=== PATIENT | male | born 1975 | race Hispanic/Latino ===

== ENCOUNTER 2019-08-31 13:04 | Emergency (ER) | payer BC ==
--- NOTE | 2019-08-31 13:27 | RAD REPORT ---
EXAM DESCRIPTION: CT - Ct Stroke Brain Wo Cont - 08/31/2019 1:20 pm CLINICAL HISTORY: NUMBNESS Headache, drowsiness, CVA symptomology COMPARISON: No comparisons TECHNIQUE: All CT scans are performed using dose optimization technique as appropriate and may inclu de automated exposure control or mA/KV adjustment according to patient size. FINDINGS: No intracranial hemorrhage, hydrocephalus or extra-axial fluid collection.No areas of brai n edema or evidence of midline shift. The paranasal sinuses and mastoids are clear. The calvarium is intact. IMPRESSION: No acute intracranial abnormality. The findings were discussed with Dr. Toscano On 08/31/2019 at 1:22 pm by telephone.
[2019-08-31 13:42] LABS: Absolute Lymphocytes (CBC) 2.7 K/uL (0.7-4.9); Basophils % 0.6 % (0-1.3); Hematocrit 47.3 % (39.6-49.0); MPV 8.6 fL (7.6-11.3); RBC Red Blood Cell Count 5.49 M/uL (4.33-5.43)
[2019-08-31 13:49] LABS: Protime INR 0.9
--- NOTE | 2019-08-31 13:54 | RAD REPORT ---
EXAM DESCRIPTION: RAD - Chest Single View - 08/31/2019 1:47 pm CLINICAL HISTORY: TIA Chest pain. COMPARISON: No comparisons FINDINGS: Portable technique limits examination quality. The lungs are grossly clear. The heart is normal in size. No displaced fractures. IMPRESSION: No acute intrathoracic process suspected.
[2019-08-31 14:05] LABS: ALT/SGPT 75 U/L (12-78); AST/SGOT 17 U/L (15-37); Albumin 4.3 g/dL (3.4-5.0); Alkaline Phosphatase 119 U/L (45-117); BUN Blood Urea Nitrogen 9 mg/dL (7-18); Bicarbonate 24 mmol/L (21-32); Bilirubin Direct 0.2 mg/dL (0-0.2); Bilirubin Total 0.6 mg/dL (0.2-1.0); Glucose Level 308 mg/dL (74-106); Potassium 3.9 mmol/L (3.5-5.1); Protein, Total 8.4 g/dL (6.4-8.2); Sodium Level 139 mmol/L (136-145); Troponin (Emerg Dept Use Only) < 0.02 ng/mL (0.0-0.045)
[2019-08-31] MEDS ORDERED: METOCLOPRAMIDE 10 MG/2mL INJ ONE (14:50)
[2019-08-31] MEDS ORDERED: DIPHENHYDRAMINE 50 MG/ML VIAL ONE (14:50)
--- NOTE | 2019-08-31 15:16 | EDPHYS ---
Physician Documentation [facility] Name: Tam Infante Age: 43 yrs Sex: Male : 1975 Arrival Date: 08/31/2019 Time: 13:06 Bed 16 Private MD: ED Physician Morgan Toscano HPI: 08/31 13:30 This 43 yrs old Male presents to ER via Ambulatory with complaints of Numbness jr8 Of Arm, Headache. 13:30 The patient complains of pain to the forehead, right anabaptist and right occipital area. jr8 The patient describes the headache as a pressure, throbbing. Onset: The symptoms/episode began/occurred acutely, last night. Associated signs and symptoms: Pertinent positives: paresthesias. Severity of symptoms: At its worst the pain was moderate, in the emergency department the pain has improved. The symptoms are alleviated by nothing. the symptoms are aggravated by nothing. The patient has not experienced similar symptoms in the past. The patient has not recently seen a physician. Stated that he has had occasional right eye twitching and blurred vision. Last night had headache on right side with paresthesias to right side of arm from elbow to hand . Historical: - Allergies: 13:11 Hydrocodone-Acetaminophen; ph 13:11 codeine sulfate; ph - Home Meds: 13:11 Metformin Oral [Active]; Glipizide Oral [Active]; ph - PMHx: 13:11 Diabetes - NIDDM; ph - Immunization history:: Adult Immunizations up to date. - Social history:: Smoking status: Patient/guardian denies using tobacco. - Ebola Screening: : Patient negative for fever greater than or equal to 101.5 degrees Fahrenheit, and additional compatible Ebola Virus Disease symptoms Patient denies exposure to infectious person Patient denies travel to an Ebola-affected area in the 21 days before illness onset No symptoms or risks identified at this time. ROS: 13:30 Eyes: Negative for injury, pain, redness, and discharge, ENT: Negative for injury, jr8 pain, and discharge, Neck: Negative for injury, pain, and swelling, Cardiovascular: Negative for chest pain, palpitations, and edema, Respiratory: Negative for shortness of breath, cough, wheezing, and pleuritic chest pain, Abdomen/GI: Negative for abdominal pain, nausea, vomiting, diarrhea, and constipation, Back: Negative for injury and pain, MS/Extremity: Negative for injury and deformity, Skin: Negative for injury, rash, and discoloration. 13:30 Neuro: Positive for headache, tingling. Exam: 13:30 Eyes: Pupils equal round and reactive to light, extra-ocular motions intact. Lids and jr8 lashes normal. Conjunctiva and sclera are non-icteric and not injected. Cornea within normal limits. Periorbital areas with no swelling, redness, or edema. ENT: Nares patent. No nasal discharge, no septal abnormalities noted. Tympanic membranes are normal and external auditory canals are clear. Oropharynx with no redness, swelling, or masses, exudates, or evidence of obstruction, uvula midline. Mucous membranes moist. Neck: Trachea midline, no thyromegaly or masses palpated, and no cervical lymphadenopathy. Supple, full range of motion without nuchal rigidity, or vertebral point tenderness. No Meningismus. Cardiovascular: Regular rate and rhythm with a normal S1 and S2. No gallops, murmurs, or rubs. Normal PMI, no JVD. No pulse deficits. Respiratory: Lungs have equal breath sounds bilaterally, clear to auscultation and percussion. No rales, rhonchi or wheezes noted. No increased work of breathing, no retractions or nasal flaring. Abdomen/GI: Soft, non-tender, with normal bowel sounds. No distension or tympany. No guarding or rebound. No evidence of tenderness throughout. Back: No spinal tenderness. No costovertebral tenderness. Full range of motion. Skin: Warm, dry with normal turgor. Normal color with no rashes, no lesions, and no evidence of cellulitis. MS/ Extremity: Pulses equal, no cyanosis. Neurovascular intact. Full, normal range of motion. Neuro: Awake and alert, GCS 15, oriented to person, place, time, and situation. Cranial nerves II-XII grossly intact. Motor strength 5/5 in all extremities. Sensory grossly intact. Cerebellar exam normal. Normal gait. Vital Signs: 13:15 BP 141 / 103; Pulse 89; Resp 18; Temp 97.4; Pulse Ox 98% on R/A; Weight 98.43 kg; ph Height 5 ft. 9 in. (175.26 cm); 14:15 BP 121 / 86; Pulse 91; Resp 20; Pulse Ox 99% on R/A; ca1 15:16 BP 130 / 89; Pulse 93; Resp 16 S; Pulse Ox 98% on R/A; ca1 13:15 Body Mass Index 32.04 (98.43 kg, 175.26 cm) ph NIH Stroke Scale Scores: 13:30 NIHSS Score: 0 jr8 13:44 NIHSS Score: 0 ca1 MDM: 13:17 Patient medically screened. jr8 15:13 Differential diagnosis: cluster headache, cerebral vascular accident, hypertensive jr8 headache, hypoglycemia, hyponatremia, intracerebral hemorrhage, migraine, neoplasm, tension headache, trigeminal neuralgia, vasomotor headache. Data reviewed: vital signs, nurses notes, lab test result(s), EKG, radiologic studies, CT scan, plain films. Data interpreted: Pulse oximetry: on room air is 99 %. Interpretation: normal. Counseling: I had a detailed discussion with the patient and/or guardian regarding: the historical points, exam findings, and any diagnostic results supporting the discharge/admit diagnosis, lab results, radiology results, the need for outpatient follow up, a neurologist, to return to the emergency department if symptoms worsen or persist or if there are any questions or concerns that arise at home. ED course: Patient feeling much better after treating headache. Tingling sensation in right hand and arm nearly gone as headache decreased. Most likely Complex Migraine. Negative NIH and without acute CT findings. Will d/c home to f/u with neurology. To come back if symptoms were to change or worsen. Patient good with plan . 08/31 13:19 Order name: Hepatic Function; Complete Time: 14: 08/31 13:19 Order name: Magnesium; Complete Time: 14: [facility] 08/31 13:19 Order name: Troponin (emerg Dept Use Only); Complete Time: 14:22 [facility] 08/31 13:19 Order name: Basic Metabolic Panel; Complete Time: 14: [facility] 08/31 13:19 Order name: CBC with Diff; Complete Time: 14: [facility] 08/31 13:19 Order name: Protime (+inr); Complete Time: 14: [facility] 08/31 13:17 Order name: CT Stroke Brain w/o Contrast; Complete Time: 13:29 ph 08/31 13:19 Order name: Ptt, Activated; Complete Time: 14: [facility] 08/31 13:19 Order name: Stroke CXR 1 View; Complete Time: 14:22 8 08/31 13:19 Order name: EKG; Complete Time: 13:21 08/31 13:48 Order name: Glucose, Ancillary Testing; Complete Time: 14:22 EDMS 08/31 13:19 Order name: Accucheck; Complete Time: 13:37 08/31 13:19 Order name: Cardiac monitoring; Complete Time: 13:08/31 13:19 Order name: EKG - Nurse/Tech; Complete Time: 13:37 08/31 13:19 Order name: IV Saline Lock; Complete Time: 13:08/31 13:19 Order name: Labs collected and sent; Complete Time: 13:08/31 13:19 Order name: NPO; Complete Time: 13:08/31 13:19 Order name: O2 Per Protocol; Complete Time: 13:08/31 13:19 Order name: O2 Sat Monitoring; Complete Time: 13:08/31 13:19 Order name: Stroke Swallow Screen; Complete Time: 13:53 jr8 Administered Medications: 14:45 Drug: Reglan 10 mg Route: IVP; Site: left antecubital; ca1 15:30 Follow up: Response: No adverse reaction; Pain is decreased ca1 14:48 Drug: Benadryl 25 mg Route: IVP; Site: left antecubital; ca1 15:31 Follow up: Response: No adverse reaction; Pain is decreased ca1 Point of Care Testing: Blood Glucose: 13:35 Blood Glucose: 312 mg/dL; ca1 Ranges: Critical Glucose Levels:Adult <50 mg/dl or >400 mg/dl <40 mg/dl or >180 mg/dl Disposition: 18:30 Co-signature as Attending Physician, Morgan Toscano MD. rn Disposition: 08/31/19 15:15 Discharged to Home. Impression: Migraine. - Condition is Stable. - Discharge Instructions: Migraine Headache. - Medication Reconciliation Form, Thank You Letter, Antibiotic Education, Prescription Opioid Use, Work release form, Family Work Release form. - Follow up: Kamari Moraes MD; When: 2 - 3 days; Reason: Recheck today's complaints, Continuance of care, Re-evaluation by your physician. - Problem is new. - Symptoms are resolved. NIH Stroke Scale - NIH Stroke Score Date: 08/31/2019 Time: 13:30 Total Score = 0 1a. Level of Consciousness (LOC) - 0(Alert) 1b. Level of Consciousness (LOC) (Year \T\ Age) - 0(Both) 1c. LOC Commands (Open \T\ Closes Eyes/Competitive Intelligence Manager) - 0(Both) 2. Best Gaze (Lateral Gaze Paresis) - 0(Normal) 3. Visual Field Loss - 0(No visual loss) 4. Facial Palsy - 0(Normal) 5a. Left Arm: Motor (10-second hold) - 0(No drift) 5b. Right Arm: Motor (10-second hold) - 0(No drift) 6a. Left Leg: Motor (5-second hold - always test supine) - 0(No drift) 6b. Right Leg: Motor (5-second hold - always test supine) - 0(No drift) 7. Limb Ataxia (finger/nose \T\ heel/bhatt - test with eyes open) - 0(Absent) 8. Sensory Loss (pinprick arms/legs/face) - 0(Normal) 9. Best Language: Aphasia (description/naming/reading) - 0(No aphasia) 10. Dysarthria (speech clarity - read or repeat words) - 0(Normal) 11. Extinction and Inattention (visual/tactile/auditory/spatial/personal) - 0(No abnormality) Initials: jr8 NIH Stroke Scale - NIH Stroke Score Date: 08/31/2019 Time: 13:44 Total Score = 0 1a. Level of Consciousness (LOC) - 0(Alert) 1b. Level of Consciousness (LOC) (Year \T\ Age) - 0(Both) 1c. LOC Commands (Open \T\ Closes Eyes/Competitive Intelligence Manager) - 0(Both) 2. Best Gaze (Lateral Gaze Paresis) - 0(Normal) 3. Visual Field Loss - 0(No visual loss) 4. Facial Palsy - 0(Normal) 5a. Left Arm: Motor (10-second hold) - 0(No drift) 5b. Right Arm: Motor (10-second hold) - 0(No drift) 6a. Left Leg: Motor (5-second hold - always test supine) - 0(No drift) 6b. Right Leg: Motor (5-second hold - always test supine) - 0(No drift) 7. Limb Ataxia (finger/nose \T\ heel/bhatt - test with eyes open) - 0(Absent) 8. Sensory Loss (pinprick arms/legs/face) - 0(Normal) 9. Best Language: Aphasia (description/naming/reading) - 0(No aphasia) 10. Dysarthria (speech clarity - read or repeat words) - 0(Normal) 11. Extinction and Inattention (visual/tactile/auditory/spatial/personal) - 0(No abnormality) Initials: ca1 Signatures: Dispatcher [employer] EDOH Morgan Toscano MD MD rn Ye Vital PA PA jr8 Nelly Oliver RN RN ph Eveline, ERIN Hanson RN ca1 Corrections: (The following items were deleted from the chart) 13:36 13:20 CT-STROKE BRAIN W/O CONTRAST+CT.RAD.BRZ ordered. [facility] EDOH 15:33 15:15 08/31/2019 15:15 Discharged to Home. Impression: Migraine. Condition is ca1 Stable. Forms are Medication Reconciliation Form, Thank You Letter, Antibiotic Education, Prescription Opioid Use. Follow up: Kamari Moraes; When: 2 - 3 days; Reason: Recheck today's complaints, Continuance of care, Re-evaluation by your physician. Problem is new. Symptoms are resolved. jr8
--- NOTE | 2019-08-31 15:16 | ER ---
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 Transition of care: patient was not received from another setting of care. Onset of symptoms was August 31, 2019. Risk Assessment: Do you want to hurt yourself or someone else? Patient reports no desire to harm self or others. Initial Sepsis Screen: Does the patient meet any 2 criteria? No. Patient's initial sepsis screen is negative. Does the patient have a suspected source of infection? No. Patient's initial sepsis screen is negative. Care prior to arrival: None. 13:09 Method Of Arrival: Ambulatory ph 13:09 Acuity: CORINA 3 ph 13:30 No acute neurological deficit is noted. ca1 Stroke Activation: Symptom onset > 6 hours Physician: Stroke Attending; Name: ; Notified At: ; Arrived At: Physician: Chief Stroke Resident; Name: ; Notified At: ; Arrived At: Physician: Stroke Resident; Name: ; Notified At: ; Arrived At: Physician: ED Attending; Name: ; Notified At: ; Arrived At: Physician: ED Resident; Name: ; Notified At: ; Arrived At: Historical: - Allergies: 13:11 Hydrocodone-Acetaminophen; ph 13:11 codeine sulfate; ph - Home Meds: 13:11 Metformin Oral [Active]; Glipizide Oral [Active]; ph - PMHx: 13:11 Diabetes - NIDDM; ph - Immunization history:: Adult Immunizations up to date. - Social history:: Smoking status: Patient/guardian denies using tobacco. - Ebola Screening: : Patient negative for fever greater than or equal to 101.5 degrees Fahrenheit, and additional compatible Ebola Virus Disease symptoms Patient denies exposure to infectious person Patient denies travel to an Ebola-affected area in the 21 days before illness onset No symptoms or risks identified at this time. Screenin:30 Abuse screen: Denies threats or abuse. Denies injuries from another. Nutritional ca1 screening: No deficits noted. Tuberculosis screening: No symptoms or risk factors identified. Fall Risk IV access (20 points). Assessment: 13:30 General: Appears in no apparent distress. comfortable, Behavior is calm, cooperative, ca1 appropriate for age. Pain: Complains of pain in right occipital area and right yarsani Pain began 6 hrs ago. Neuro: Level of Consciousness is awake, alert, obeys commands, Oriented to person, place, time, situation, Appropriate for age Clean Up Helper Banquet are equal bilaterally Moves all extremities. Gait is steady, Speech is normal, Facial symmetry appears normal, Pupils are PERRLA, Intact Reports paresthesias in left arm. Cardiovascular: Heart tones S1 S2 present Capillary refill < 3 seconds Patient's skin is warm and dry. Pulses are all present. Respiratory: Airway is patent Respiratory effort is even, unlabored, Respiratory pattern is regular, symmetrical, Breath sounds are clear bilaterally. GI: Abdomen is round non-distended, Bowel sounds present X 4 quads. Abd is soft and non tender X 4 quads. : No deficits noted. No signs and/or symptoms were reported regarding the genitourinary system. EENT: No deficits noted. No signs and/or symptoms were reported regarding the EENT system. Derm: Skin is intact, is healthy with good turgor, Skin is pink, warm \T\ dry. Musculoskeletal: Circulation, motion, and sensation intact. Capillary refill < 3 seconds, Range of motion: intact in all extremities. 13:44 VAN Scoring: Arm Drift: Patients demonstrates NO arm weakness. Patient is VAN Negative. ca1 Patient has been NPO before screening. The patient is alert, and able to follow commands. The patient does not exhibit slurred or garbled speech. The patient is not exhibiting difficulty speaking. The patient does not exhibit difficulty understanding words. The patient is able to swallow own secretions with no drooling or need for suction. Patient tolerated one teaspoon of water. No drooling, immediate coughing, gurgling, or clearing of the throat was noted. The patient tolerated 90mL of water. No drooling, immediate coughing, gurgling, or clearing of the throat was noted. The patient passed the bedside swallow screening. Oral medications may be given as ordered. Contact Physician for further diet orders. Provider notified of bedside swallow screening results: Margie Mosquera RN. 14:40 Reassessment: Patient appears in no apparent distress at this time. Patient and/or ca1 family updated on plan of care and expected duration. Pain level reassessed. Patient is alert, oriented x 3, equal unlabored respirations, skin warm/dry/pink. 15:31 Reassessment: Patient appears in no apparent distress at this time. Patient is alert, ca1 oriented x 3, equal unlabored respirations, skin warm/dry/pink. Vital Signs: 13:15 BP 141 / 103; Pulse 89; Resp 18; Temp 97.4; Pulse Ox 98% on R/A; Weight 98.43 kg; ph Height 5 ft. 9 in. (175.26 cm); 14:15 BP 121 / 86; Pulse 91; Resp 20; Pulse Ox 99% on R/A; ca1 15:16 BP 130 / 89; Pulse 93; Resp 16 S; Pulse Ox 98% on R/A; ca1 13:15 Body Mass Index 32.04 (98.43 kg, 175.26 cm) ph NIH Stroke Scale Scores: 13:30 NIHSS Score: 0 jr8 13:44 NIHSS Score: 0 ca1 ED Course: 13:06 Patient arrived in ED. as 13:10 Triage completed. ph 13:15 Arm band placed on. ca1 13:17 Ye Vital PA is PHCP. jr8 13:17 Morgan Toscano MD is Attending Physician. jr8 13:20 Margie Mosquera, RN is Primary Nurse. ca1 13:21 CT Stroke Brain w/o Contrast In Process Unspecified. EDMS 13:30 Patient has correct armband on for positive identification. Placed in gown. Bed in low ca1 position. Call light in reach. Side rails up X 1. quality assurance monitor chassis on. Pulse ox on. NIBP on. Warm blanket given. 13:34 No provider procedures requiring assistance completed. Initial lab(s) drawn, by ga, ca1 sent to lab. Inserted saline lock: 20 gauge in left antecubital area, using aseptic technique. Blood collected. 13:38 EKG done, by prosthetics technician. reviewed by Ye BRAVO. at1 13:48 Stroke CXR 1 View In Process Unspecified. EDMS 15:15 Kamari Moraes MD is Referral Physician. jr8 15:32 IV discontinued, intact, bleeding controlled, No redness/swelling at site. Pressure ca1 dressing applied. Administered Medications: 14:45 Drug: Reglan 10 mg Route: IVP; Site: left antecubital; ca1 15:30 Follow up: Response: No adverse reaction; Pain is decreased ca1 14:48 Drug: Benadryl 25 mg Route: IVP; Site: left antecubital; ca1 15:31 Follow up: Response: No adverse reaction; Pain is decreased ca1 Point of Care Testing: Blood Glucose: 13:35 Blood Glucose: 312 mg/dL; ca1 Ranges: Outcome: 15:15 Discharge ordered by MD. jr8 15:32 Discharged to home ambulatory, with family. ca1 15:32 Condition: stable 15:32 Discharge instructions given to patient, Instructed on discharge instructions, follow up and referral plans. Demonstrated understanding of instructions, follow-up care. 15:33 Patient left the ED. ca1 NIH Stroke Scale - NIH Stroke Score Date: 08/31/2019 Time: 13:30 Total Score = 0 1a. Level of Consciousness (LOC) - 0(Alert) 1b. Level of Consciousness (LOC) (Year \T\ Age) - 0(Both) 1c. LOC Commands (Open \T\ Closes Eyes/Regasification Plant Operator) - 0(Both) 2. Best Gaze (Lateral Gaze Paresis) - 0(Normal) 3. Visual Field Loss - 0(No visual loss) 4. Facial Palsy - 0(Normal) 5a. Left Arm: Motor (10-second hold) - 0(No drift) 5b. Right Arm: Motor (10-second hold) - 0(No drift) 6a. Left Leg: Motor (5-second hold - always test supine) - 0(No drift) 6b. Right Leg: Motor (5-second hold - always test supine) - 0(No drift) 7. Limb Ataxia (finger/nose \T\ heel/bhatt - test with eyes open) - 0(Absent) 8. Sensory Loss (pinprick arms/legs/face) - 0(Normal) 9. Best Language: Aphasia (description/naming/reading) - 0(No aphasia) 10. Dysarthria (speech clarity - read or repeat words) - 0(Normal) 11. Extinction and Inattention (visual/tactile/auditory/spatial/personal) - 0(No abnormality) Initials: jr8 NIH Stroke Scale - NIH Stroke Score Date: 08/31/2019 Time: 13:44 Total Score = 0 1a. Level of Consciousness (LOC) - 0(Alert) 1b. Level of Consciousness (LOC) (Year \T\ Age) - 0(Both) 1c. LOC Commands (Open \T\ Closes Eyes/Regasification Plant Operator) - 0(Both) 2. Best Gaze (Lateral Gaze Paresis) - 0(Normal) 3. Visual Field Loss - 0(No visual loss) 4. Facial Palsy - 0(Normal) 5a. Left Arm: Motor (10-second hold) - 0(No drift) 5b. Right Arm: Motor (10-second hold) - 0(No drift) 6a. Left Leg: Motor (5-second hold - always test supine) - 0(No drift) 6b. Right Leg: Motor (5-second hold - always test supine) - 0(No drift) 7. Limb Ataxia (finger/nose \T\ heel/bhatt - test with eyes open) - 0(Absent) 8. Sensory Loss (pinprick arms/legs/face) - 0(Normal) 9. Best Language: Aphasia (description/naming/reading) - 0(No aphasia) 10. Dysarthria (speech clarity - read or repeat words) - 0(Normal) 11. Extinction and Inattention (visual/tactile/auditory/spatial/personal) - 0(No abnormality) Initials: ca1 Signatures: Dispatcher [employer] EDVicki Porter Josh, PA PA jr8 Henrietta Lozada, production inspector EKG Tat1 Nelly Oliver RN RN Margie Mosquera RN RN ca1 Corrections: (The following items were deleted from the chart) 13:56 13:45 Stroke Activation: Symptom onset > 6 hours ca1 ca1
[2019-08-31 16:03] VITALS: TEMP 97.4
[2019-08-31 16:06] VITALS: BP 130/89; O2SAT 98
--- NOTE | 2019-09-01 08:10 | EKG ---
Test Date: 2019-08-31 Test Time: 13:32:01 Personal Banker: TOMI MEASUREMENT RESULTS: Intervals: Rate: 80 FL: 162 QRSD: 84 QT: 360 QTc: 415 [place]: P: 49 FL: 162 QRS: 16 T: -10 INTERPRETIVE STATEMENTS: Normal sinus rhythm ST elevation, consider lateral injury or acute infarct ACUTE RI Abnormal ECG No previous ECG available for comparison Electronically Signed On 09-01-19 08:07:35 PICKLE SORTER by Noel Roe
== END 2019-08-31 15:33 | disposition home or self-care (01) ==
LOC: ER 13:04
DX: G43.909 Migraine, unspecified, not intractable, without status migrainosus (principal); E11.9 Type 2 diabetes mellitus without complications; Z88.6 Allergy status to analgesic agent
CPT/HCPCS: 36415; 70450; 71045; 80048; 80076; 82947; 83735; 84484; 85025; 85610; 85730; 93005; 96374; 96375; 99284; J1200; J2765